=== PATIENT | male | born 1940 | race Hispanic/Latino ===

== ENCOUNTER 2016-12-24 19:41 | Emergency (ER) | payer MEDICARE ==
[2016-12-24 19:56] VITALS: BP 152/70
[2016-12-24 20:35] LABS: Hematocrit 48.4 % (35.5-45.6); Hemoglobin 16.3 gm/dl (11.8-15.2); Mean Corpuscular HGB Conc 34 % (32-34); Mean Corpuscular Hemoglobin 32 pg (28-32); Mean Corpuscular Volume 94 fl (84-94); Platelet Count 285 K/mm3 (140-440); Red Blood Count 5.15 M/mm3 (3.65-5.03); Red Cell Distribution Width 15.2 % (13.2-15.2); White Blood Count 7.7 K/mm3 (4.5-11.0)
[2016-12-24 20:49] LABS: Anion Gap 18 mmol/L; BUN/Creatinine Ratio 12.72; Blood Urea Nitrogen 14 mg/dL (9-20); Calcium 9.1 mg/dL (8.4-10.2); Carbon Dioxide 24 mmol/L (22-30); Chloride 101.8 mmol/L (98-107); Glucose 118 mg/dL (75-100); Potassium 4.1 mmol/L (3.6-5.0); Sodium 140 mmol/L (137-145)
[2016-12-24 21:29] LABS: INR 2.75 (0.87-1.13)
[2016-12-24 21:30] LABS: Partial Thromboplastin Time 44.3 Sec. (24.2-36.6)
--- NOTE | 2016-12-24 21:35 | Emergency Department Report ---
HPI - General Chief Complaint: Chest Pain Time Seen by Provider: 12/24/16 21:19 - HPI HPI: Room 5 The patient is a 76-year-old male presenting with a chief complaint of chest pain. The patient states earlier today after eating 2 sandwiches he went upstairs and developed a pain across his chest described as a "strong heart." The patient took a sublingual nitroglycerin and aspirin and 15 minutes later the chest pain resolved. The patient states chest pain never returned. Patient did not have shortness of breath, nausea/vomiting or diaphoresis with this chest pain. Patient states his last stress test occurred approximate 5 months ago but he is uncertain if he has ever received a cardiac catheterization Location: Chest Duration: 15 Minutes Quality: "Strong hurt" Severity: Currently 0/10 Modifying factors: [see above] Context: [see above] Mode of transportation: [not driving] ED Past Medical Hx - Past Medical History Hx Hypertension: Yes - Surgical History Past Surgical History?: Yes Additional Surgical History: Aortic Valve Replacement (mechanical 2008) - Family History Family history: no significant - Social History Smoking Status: Never Smoker Substance Use Type: None ED Review of Systems ROS: Stated complaint: CHEST PAINS Other details as noted in HPI Comment: All other systems reviewed and negative Constitutional: denies: chills, fever Eyes: denies: eye pain, eye discharge, vision change ENT: denies: ear pain, throat pain Respiratory: denies: cough, shortness of breath, wheezing Cardiovascular: chest pain. denies: palpitations Endocrine: no symptoms reported Gastrointestinal: denies: abdominal pain, nausea, diarrhea Genitourinary: denies: urgency, dysuria Musculoskeletal: denies: back pain, joint swelling, arthralgia Skin: denies: rash, lesions Neurological: denies: headache, weakness, paresthesias Psychiatric: denies: anxiety, depression Hematological/Lymphatic: denies: easy bleeding, easy bruising Physical Exam - Physical Exam Vital Signs: Vital Signs 12/24/16 19:53 Temperature 97.5 F L Pulse Rate 64 Respiratory 18 Rate Blood Pressure 152/70 O2 Sat by Pulse 95 Oximetry Physical Exam: GENERAL: The patient is well-developed well-nourished male lying on stretcher not appearing to be in acute distress. [] HEENT: Normocephalic. Atraumatic. Extraocular motions are intact. Patient has moist mucous membranes. NECK: Supple. Trachea midline CHEST/LUNGS: Clear to auscultation. There is no respiratory distress noted. HEART/CARDIOVASCULAR: Regular. There is no tachycardia. There is no gallop rub or murmur. ABDOMEN: Abdomen is soft, nontender. Patient has normal bowel sounds. There is no abdominal distention. SKIN: There is no rash. There is no edema. There is no diaphoresis. NEURO: The patient is awake, alert, and oriented. The patient is cooperative. The patient has normal speech MUSCULOSKELETAL: There is no evidence of acute injury. ED Course Vital Signs 12/24/16 19:53 Temperature 97.5 F L Pulse Rate 64 Respiratory 18 Rate Blood Pressure 152/70 O2 Sat by Pulse 95 Oximetry ED Medical Decision Making - Lab Data Result diagrams: 12/24/16 20:17 12/24/16 20:17 Laboratory Tests 12/24/16 12/24/16 12/24/16 20:17 20:17 20:17 WBC 7.7 RBC 5.15 H Hgb 16.3 H Hct 48.4 H MCV 94 MCH 32 MCHC 34 RDW 15.2 Plt Count 285 Lymph % (Auto) 15.5 [place] % (Auto) 10.5 H Eos % (Auto) 2.0 Baso % (Auto) 1.0 Lymph # 1.2 [place] # 0.8 Eos # 0.2 Baso # 0.1 Seg Neutrophils % 71.0 H Seg Neutrophils # 5.5 PT 29.2 H INR 2.75 H APTT 44.3 H Sodium 140 Potassium 4.1 Chloride 101.8 Carbon Dioxide 24 Anion Gap 18 BUN 14 Creatinine 1.1 Estimated GFR > 60 BUN/Creatinine Ratio 12.72 Glucose 118 H Calcium 9.1 Troponin T < 0.010 - EKG Data -: EKG Interpreted by Me Rate: normal - EKG Data When compared to previous EKG there are: previous EKG unavailable Interpretation: nonspecific ST-T wave elian (T-wave inversions in leads 1, aVL, V6. Left bundle branch block (patient reports history of having left bundle branch block in the past)) - Radiology Data Radiology results: image reviewed (chest x-ray) interpreted by me: Chest x-ray-no focal infiltrates, no pneumothorax - Medical Decision Making I discussed at length with the patient and friend/family member at bedside my concern for the patient's episode of chest pain especially given his past medical history. I discussed the nonspecific findings on EKG including the T- wave inversions. I also explained how one set of cardiac enzymes does not exclude acute coronary syndrome. The patient and family verbalized understanding of the risk of increased morbidity and/or mortality should he leave the hospital AGAINST MEDICAL ADVICE. Patient informed he should return to the hospital immediately should he change his mind - Differential Diagnosis ACS, GERD, esophageal spasm, pericarditis Critical care attestation.: If time is entered above; I have spent that time in minutes in the direct care of this critically ill patient, excluding procedure time. ED Disposition Clinical Impression: Chest pain, T wave inversion in EKG Disposition: DC-07 LEFT AGAINST MED ADVICE Is pt being admited?: No Does the pt Need Aspirin: Yes Condition: Undetermined Instructions: Chest Pain (ED) Referrals: PRIMARY CARE, [Primary Care Provider] - 3-5 Days Forms: AMA Form Time of Disposition: 21:39 (patient leaving AMA)
--- NOTE | 2016-12-25 07:42 | XRay Report ---
Chest 2 views: History: Chest pain. Findings: Normal cardiomediastinal silhouette the trachea is midline. Suspected mild emphysema No consolidation pneumothorax or pleural effusion. Impression: Suspected emphysema. No acute lung changes.
== END 2016-12-24 21:48 | disposition left against medical advice (07) ==
LOC: ED 19:41
DX: R07.89 Other chest pain (principal); I10 Essential (primary) hypertension
CPT/HCPCS: 36415; 71020; 80048; 84484; 85025; 85610; 85730; 93005; 93010; 99284